=== PATIENT | female | born 1965 | race Caucasian/White ===

== ENCOUNTER 2024-08-06 03:21 | Emergency (ER) | payer OTHER ==
[2024-08-06 03:37] VITALS: PULSE 71
[2024-08-06 03:43] VITALS: BP 156/96
[2024-08-06] MEDS ORDERED: Sodium Chloride 0.9% 10 ML Syringe FLUSH PRN (03:49)
[2024-08-06 04:10] LABS: BASOPHILS PERCENT AUTO 0.2 % (0.0-1.0); EOSINOPHILS ABSOLUTE AUTO 0.2 K/mm3 (0.0-0.4); EOSINOPHILS PERCENT AUTO 1.9 % (0.0-6.0); HEMATOCRIT 44.3 % (37.0-47.0); HEMOGLOBIN 14.5 gm/dl (12.0-16.0); IMMATURE GRAN ABSOLUTE AUTO 0.04 K/mm3 (0.00-0.05); IMMATURE GRAN PERCENT AUTO 0.4 % (0.0-0.4); LYMPHOCYTES ABSOLUTE AUTO 1.4 K/mm3 (1.0-4.8); LYMPHOCYTES PERCENT AUTO 12.1 % (24.0-44.0); MEAN CORPUSCULAR HEMOGLOBIN 30.9 pg (28.0-32.0); MEAN CORPUSCULAR HGB CONC 32.7 g/dl (32.0-36.0); MEAN CORPUSCULAR VOLUME 94.3 fl (83.0-99.0); MEAN PLATELET VOLUME 9.7 fl (9.4-12.3); MONOCYTES ABSOLUTE AUTO 0.5 K/mm3 (0.0-0.8); MONOCYTES PERCENT AUTO 4.4 % (0.0-8.0); NEUTROPHILS ABSOLUTE AUTO 9.2 K/mm3 (1.8-7.7); PLATELET COUNT,PLT 319 K/mm3 (150-400); WHITE BLOOD CELL COUNT,WBC 11.33 K/mm3 (3.9-11.3)
[2024-08-06] MEDS: Lactated Ringers 500 ML IV ONE (04:16)
[2024-08-06] MEDS: Ondansetron 4 MG/2 ML SDV IVPUSH ONE (04:17)
[2024-08-06 04:20] LABS: ALBUMIN 3.7 g/dl (3.4-5.0); ANION GAP 10.8 (5-15); BILIRUBIN TOTAL 0.3 mg/dL (0.2-1.0); CALCIUM 8.7 mg/dL (8.5-10.1); CREATININE 0.9 mg/dL (0.55-1.02); EST CRCL DRUG DOSING (CG) 62.23 mL/min; POTASSIUM,K 3.8 mEq/L (3.5-5.1); PROTEIN TOTAL,TP 7.4 g/dl (6.4-8.2)
[2024-08-06 04:37] LABS: APPEARANCE,URINE CLEAR (Clear); BILIRUBIN,URINE NEGATIVE (Negative); COLOR,URINE YELLOW (Yellow); GLUCOSE,URINE NEGATIVE (Negative); KETONES,URINE NEGATIVE (Negative); LEUKOCYTE ESTERASE,URINE NEGATIVE (Negative); NITRITE,URINE NEGATIVE (Negative); OCCULT BLOOD,URINE NEGATIVE (Negative); PROTEIN,URINE NEGATIVE (Negative); UROBILINOGEN,URINE 0.2 (0.2-1.0)
[2024-08-06] MEDS: Iopamidol 612 MG/ML 100 ML Bottle IVPUSH ONE (05:15)
[2024-08-06] MEDS: Metoclopramide 10 MG/2 ML SDV IVPUSH ONE (06:32)
== END 2024-08-06 08:56 | disposition home or self-care (01) ==
LOC: JD.ED 03:21
DX: R07.9 Chest pain, unspecified (principal); R10.13 Epigastric pain; R19.00 Intra-abdominal and pelvic swelling, mass and lump, unspecified site; Z79.899 Other long term (current) drug therapy; Z90.710 Acquired absence of both cervix and uterus
CPT/HCPCS: 36415; 71045; 74177; 76856; 80053; 81003; 83690; 84484; 85025; 87428; 93005; 96361; 96374; 96375; 99285; J2405; J2765; J7120; Q9967; 93010; 99284

== ENCOUNTER 2024-08-26 14:52 | Emergency (ER) | payer BC, OTHER ==
[2024-08-26 15:34] LABS: BASOPHILS ABSOLUTE AUTO 0.1 K/mm3 (0.0-0.2); BASOPHILS PERCENT AUTO 0.3 % (0.0-1.0); EOSINOPHILS ABSOLUTE AUTO 0.6 K/mm3 (0.0-0.4); EOSINOPHILS PERCENT AUTO 2.8 % (0.0-6.0); HEMATOCRIT 52.5 % (37.0-47.0); HEMOGLOBIN 17.8 gm/dl (12.0-16.0); IMMATURE GRAN ABSOLUTE AUTO 0.13 K/mm3 (0.00-0.05); IMMATURE GRAN PERCENT AUTO 0.6 % (0.0-0.4); LYMPHOCYTES ABSOLUTE AUTO 1.4 K/mm3 (1.0-4.8); LYMPHOCYTES PERCENT AUTO 6.3 % (24.0-44.0); MEAN CORPUSCULAR HEMOGLOBIN 30.7 pg (28.0-32.0); MEAN CORPUSCULAR HGB CONC 33.9 g/dl (32.0-36.0); MEAN CORPUSCULAR VOLUME 90.5 fl (83.0-99.0); MEAN PLATELET VOLUME 9.4 fl (9.4-12.3); MONOCYTES ABSOLUTE AUTO 1.1 K/mm3 (0.0-0.8); MONOCYTES PERCENT AUTO 5.2 % (0.0-8.0); NEUTROPHILS PERCENT AUTO 84.8 % (41.0-71.0); PLATELET COUNT,PLT 515 K/mm3 (150-400); WHITE BLOOD CELL COUNT,WBC 21.26 K/mm3 (3.9-11.3)
[2024-08-26 15:51] LABS: LACTIC ACID 3.6 mmol/L (0.4-2.0)
[2024-08-26] MEDS: Ondansetron 4 MG/2 ML SDV IVPUSH ONE (15:51)
[2024-08-26 15:55] LABS: A/G RATIO 1.2 (1-2); ALBUMIN 4.7 g/dl (3.4-5.0); ANION GAP 20.8 (5-15); BILIRUBIN TOTAL 0.6 mg/dL (0.2-1.0); BUN/CREATININE RATIO 9.2 (14-18); C-REACTIVE PROTEIN 0.33 mg/dL (<0.30); CREATININE 1.2 mg/dL (0.55-1.02); EST CRCL DRUG DOSING (CG) 44.86 mL/min; POTASSIUM,K 3.8 mEq/L (3.5-5.1); PROTEIN TOTAL,TP 8.7 g/dl (6.4-8.2)
[2024-08-26] MEDS: Iopamidol 612 MG/ML 100 ML Bottle IVPUSH ONE (15:56)
[2024-08-26] MEDS: Sodium Chloride 0.9% 10 ML Syringe FLUSH ONE (15:56)
[2024-08-26] MEDS: fentaNYL 100 MCG/2 ML SDV IVPUSH ONE (16:04)
[2024-08-26] MEDS: Sodium Chloride 0.9% 1,000 ML IV SCH ×2 (16:05→19:05)
[2024-08-26 16:23] LABS: CALCIUM 10.6 mg/dL (8.5-10.1)
[2024-08-26] MEDS: Lactated Ringers 1,000 ML IV ONE (17:20)
[2024-08-26] MEDS: Piperacillin/Tazobactam 4.5 GM in Sodium Chloride 0.9% 100 ML IV ONE (17:36)
[2024-08-26 17:40] LABS: APPEARANCE,URINE CLEAR (Clear); BILIRUBIN,URINE NEGATIVE (Negative); COLOR,URINE YELLOW (Yellow); GLUCOSE,URINE NEGATIVE (Negative); KETONES,URINE TRACE (Negative); LEUKOCYTE ESTERASE,URINE NEGATIVE (Negative); NITRITE,URINE NEGATIVE (Negative); OCCULT BLOOD,URINE NEGATIVE (Negative); PROTEIN,URINE 1+ (Negative); UROBILINOGEN,URINE 0.2 (0.2-1.0)
[2024-08-26 18:17] LABS: BACTERIA,URINE FEW /hpf (FEW); RBC,URINE 0-5 /hpf (0-5); SQUAMOUS EPITHELIAL CELLS,UR 0-5 /hpf (0-5); WBC,URINE 0-5 /hpf (0-5)
[2024-08-26 18:22] LABS: MUCUS,URINE FEW /hpf (FEW)
[2024-08-26] MEDS: Benzocaine 20% Topical Spray UD MUCMEM ONE (18:22)
[2024-08-26 19:37] VITALS: BP 142/94; PULSE 88
== END 2024-08-26 19:10 ==
LOC: JD.ED 14:52
DX: K56.609 Unspecified intestinal obstruction, unspecified as to partial versus complete obstruction (principal); Z90.710 Acquired absence of both cervix and uterus; Z79.899 Other long term (current) drug therapy
CPT/HCPCS: 36415; 43752; 74018; 74177; 80053; 81001; 83605; 83690; 84484; 85025; 86140; 87040; 87077; 87154; 87186; 93005; 96361; 96365; 96375; 99285; A9270; J2405; J2543; J3010; J7030; J7120; Q9967; 93010